=== PATIENT | female | born 1995 | race American Indian/Alaskan Native ===

== ENCOUNTER 2017-02-02 23:21 | Emergency (ER) | payer OTHER ==
[2017-02-03 02:04] LABS: Bacteria,Urine 4+ /HPF (Negative); Bilirubin,Urine NEG (Negative); Blood,Urine NEG (Negative); Ketones,Urine NEG (Negative); Leukocyte Esterase,Urine MOD (Negative); Mucus,Urine 1+ /HPF; Nitrite,Urine NEG (Negative); Protein,Urine <15 mg/dL mg/dL (Negative); Urobilinogen,Urine < 2.0 mg/dL (<2.0)
--- NOTE | 2017-02-03 04:30 | Emergency Department Report ---
ED Female HPI - General Chief complaint: Urogenital-Female Stated complaint: ABD PAIN Time Seen by Provider: 02/03/17 03:32 Source: patient Mode of arrival: Ambulatory Limitations: No Limitations - History of Present Illness Initial comments: This is a 21-year-old female that presents with bilateral lower abdomen pain for 4 months. She stated had a history of kidney stones. Patient was here last year with the same symptoms which she was diagnosed with kidney stones. Patient stated has dysuria but denies polyuria. Denies new sexual partner. Does not have any concerns about STDs. Denies any odor or discharge. Patient denies pelvic pain. Patient stated now that she wants pain medication because she has similar symptoms. Patient denies any nausea, vomiting, diarrhea, chest pain, shortness of breath, fever or chills. Patient does not seem toxic or ill in appearance. No signs of distress noted. Patient denies hematuria. Patient denies back pain. Patient denies point tenderness in the abdomen. Nonradiating. -: Gradual, year(s) (4) Location: LLQ, RLQ Radiation: non-radiating Severity: mild Severity scale (0 -10): 0 Quality: cramping, aching Consistency: constant Improves with: none Worsens with: urination Are you Now?: No (patient denies ) Last Menstrual Period: 01/09/17 EDC: 10/16/17 - Related Data Previous Rx's Medication Instructions Recorded Last Taken Type Acetaminophen/Codeine [Tylenol 1 tab PO Q6H PRN #15 tab 05/13/16 Unknown Rx /Codeine # 3 tab] Amoxicillin/K Clav Tab [Augmentin 1 tab PO Q12HR #20 tab 05/13/16 Unknown Rx 875MG TAB] Ibuprofen [Motrin 800 MG tab] 800 mg PO Q8HR #20 tablet 05/13/16 Unknown Rx Loratadine [Claritin] 10 mg PO DAILY #30 tablet 05/13/16 Unknown Rx Prednisone [predniSONE 10 mg 10 mg PO .TAPER #1 tab.ds.pk 05/13/16 Unknown Rx (6-Day Pack, 21 Tabs)] Phenazopyridine [Pyridium] 200 mg PO TID 2 Days 02/03/17 Unknown Rx Sulfamethoxazole/Trimethoprim 1 each PO BID 5 Days 02/03/17 Unknown Rx [Bactrim DS TAB] Allergies Allergy/AdvReac Type Severity Reaction Status Date / Time No Known Allergies Allergy Verified 03/21/15 23:20 ED Review of Systems ROS: Stated complaint: ABD PAIN Other details as noted in HPI Constitutional: denies: chills, fever Eyes: denies: eye pain, eye discharge, vision change ENT: denies: ear pain, throat pain Respiratory: denies: cough, shortness of breath, wheezing Cardiovascular: denies: chest pain, palpitations Endocrine: no symptoms reported Gastrointestinal: denies: abdominal pain, nausea, diarrhea Genitourinary: denies: urgency, dysuria, discharge Musculoskeletal: denies: back pain, joint swelling, arthralgia Skin: denies: rash, lesions Neurological: denies: headache, weakness, paresthesias Psychiatric: denies: anxiety, depression Hematological/Lymphatic: denies: easy bleeding, easy bruising ED Past Medical Hx - Past Medical History Previous Medical History?: Yes Additional medical history: KIDNEY STONES - Surgical History Past Surgical History?: No - Social History Smoking Status: Never Smoker Substance Use Type: None - Medications Home Medications: Home Medications Medication Instructions Recorded Confirmed Last Taken Type Acetaminophen/Codeine [Tylenol 1 tab PO Q6H PRN #15 tab 05/13/16 Unknown Rx /Codeine # 3 tab] Amoxicillin/K Clav Tab [Augmentin 1 tab PO Q12HR #20 tab 05/13/16 Unknown Rx 875MG TAB] Ibuprofen [Motrin 800 MG tab] 800 mg PO Q8HR #20 tablet 05/13/16 Unknown Rx Loratadine [Claritin] 10 mg PO DAILY #30 tablet 05/13/16 Unknown Rx Prednisone [predniSONE 10 mg 10 mg PO .TAPER #1 tab.ds.pk 05/13/16 Unknown Rx (6-Day Pack, 21 Tabs)] Phenazopyridine [Pyridium] 200 mg PO TID 2 Days 02/03/17 Unknown Rx Sulfamethoxazole/Trimethoprim 1 each PO BID 5 Days 02/03/17 Unknown Rx [Bactrim DS TAB] ED Physical Exam - General Limitations: No Limitations General appearance: alert, in no apparent distress - Head Head exam: Present: atraumatic, normocephalic - Eye Eye exam: Present: normal appearance - ENT ENT exam: Present: mucous membranes moist - Neck Neck exam: Present: normal inspection - Respiratory Respiratory exam: Present: normal lung sounds bilaterally. Absent: respiratory distress - Cardiovascular Cardiovascular Exam: Present: regular rate, normal rhythm. Absent: systolic murmur, diastolic murmur, rubs, gallop - GI/Abdominal GI/Abdominal exam: Present: soft, tenderness (RLQ and LLQ), normal bowel sounds. Absent: distended, guarding, rebound, rigid, diminished bowel sounds, hyperactive bowel sounds, hypoactive bowel sounds, organomegaly, mass, bruit, pulsatile mass, hernia - Expanded GI/Abdominal Exam Expanded GI/Abdominal exam: Absent: psoas sign, obturator sign, heel tap sign, Borges's sign, Rovsing's sign, tenderness at Mcburney's Point, ascites - Extremities Exam Extremities exam: Present: normal inspection, full ROM, normal capillary refill. Absent: tenderness, pedal edema - Back Exam Back exam: Present: normal inspection, full ROM. Absent: tenderness, CVA tenderness (R), CVA tenderness (L) - Neurological Exam Neurological exam: Present: alert, oriented X3, CN II-XII intact, normal gait - Psychiatric Psychiatric exam: Present: normal affect, normal mood - Skin Skin exam: Present: warm, dry, intact, normal color. Absent: rash ED Course Vital Signs 02/03/17 02/03/17 02/03/17 00:12 02:24 05:03 Temperature 98.8 F 98.3 F 98.4 F Pulse Rate 88 92 H 86 Respiratory 18 18 20 Rate Blood Pressure 110/78 115/81 Blood Pressure 119/81 [Left] O2 Sat by Pulse 100 99 98 Oximetry ED Medical Decision Making - Lab Data Result diagrams: 02/03/17 05:05 - Medical Decision Making Ed course: This is a 21-year-old female that presents with bilateral lower abdomen pain for 4 months and dysuria. 1- CT scan with contrast abdomen and pelvis: Normal 2- patient is aware of the CT findings 3- at this time I have treated the patient for a urinary tract infection. I instructed the patient to follow-up with her primary care doctor/urologist and 3 -5 days. 4- at the time of discharge the patient does not seem toxic or ill in appearance. No signs of any distress noted. 5- I instructed patient to take antibiotics as prescribed this full course. 6- patient agrees to discharge plan and treatment. No questions noted at this time. Critical care attestation.: If time is entered above; I have spent that time in minutes in the direct care of this critically ill patient, excluding procedure time. ED Disposition Clinical Impression: Urinary tract infection Qualifiers: Urinary tract infection type: site unspecified Hematuria presence: without hematuria Qualified Code(s): N39.0 - Urinary tract infection, site not specified Disposition: DISCHARGED TO HOME OR SELFCARE Is pt being admited?: No Does the pt Need Aspirin: No Condition: Stable Instructions: Urinary Tract Infection in Women (ED) Additional Instructions: Please follow-up with your primary care doctor/urologist in 3-5 days Take full course of antibiotics as prescribed If symptoms worsen report back to emergency room Prescriptions: Phenazopyridine [Pyridium] 200 mg PO TID 2 Days Sulfamethoxazole/Trimethoprim [Bactrim DS TAB] 1 each PO BID 5 Days Referrals: PRIMARY CARE, [Primary Care Provider] - 3-5 Days Forms: Work/School Release Form(ED)
[2017-02-03] MEDS ORDERED: NACL ONE (04:56)
[2017-02-03 05:04] VITALS: BP 119/81
[2017-02-03 06:01] LABS: Anion Gap 18 mmol/L; BUN/Creatinine Ratio 14.28; Blood Urea Nitrogen 10 mg/dL (7-17); Calcium 9.2 mg/dL (8.4-10.2); Carbon Dioxide 25 mmol/L (22-30); Chloride 99.9 mmol/L (98-107); Glucose 89 mg/dL (65-100); Potassium 4.6 mmol/L (3.6-5.0); Sodium 138 mmol/L (137-145)
--- NOTE | 2017-02-03 06:35 | Cat Scan Report ---
FINAL REPORT PROCEDURE: CT ABDOMEN PELVIS W CON TECHNIQUE: Computerized axial tomography of the abdomen and pelvis was performed after the IV injection of iodinated nonionic contrast. HISTORY: abd pain fredrick pelvic pain COMPARISON: 03/21/2015 FINDINGS: Visualized lower thorax: No significant abnormality. Liver: Normal size and attenuation. Spleen: Normal size and attenuation. Gallbladder and biliary system: Normal. Pancreas: Normal. Adrenals: Normal. Kidneys: Normal. GI tract: There is moderate stool in the colon. There is no obstruction, fecal impaction or bowel wall thickening. The appendix is normal.. Lymph nodes and mesentery: Normal. Vasculature: Normal. Bladder: Normal. Reproductive organs: Uterus and ovaries are unremarkable.. Peritoneum: There is no ascites, free air, abscess or adenopathy.. Musculoskeletal structures: There is spondylolysis on the right at L5-S1. There is no spondylolisthesis or fracture.. Other: None. IMPRESSION: There is no acute intra-abdominal abnormality.
== END 2017-02-03 06:55 | disposition home or self-care (01) ==
LOC: ED 23:21
DX: N39.0 Urinary tract infection, site not specified (principal)
CPT/HCPCS: 36415; 74177; 80048; 81001; 81025; 99284; Q9967

== ENCOUNTER 2018-04-14 16:10 | Emergency (ER) | payer OTHER ==
[2018-04-14] MEDS ORDERED: TYLENOL PO ONE ×2 (21:11→23:59)
[2018-04-14 22:19] LABS: Basophils % (Auto) 0.3 % (0.0-1.8); Eosinophils # (Auto) 0.3 K/mm3 (0.0-0.4); Eosinophils % (Auto) 3.5 % (0.0-4.3); Hematocrit 29.2 % (30.3-42.9); Hemoglobin 9.7 gm/dl (10.1-14.3); Lymphocytes # (Auto) 1.9 K/mm3 (1.2-5.4); Lymphocytes % (Auto) 25.5 % (13.4-35.0); Mean Corpuscular HGB Conc 33 % (30-34); Mean Corpuscular Hemoglobin 30 pg (28-32); Mean Corpuscular Volume 90 fl (79-97); Monocytes # (Auto) 0.6 K/mm3 (0.0-0.8); Monocytes % (Auto) 8.4 % (0.0-7.3); Platelet Count 295 K/mm3 (140-440); Red Blood Count 3.26 M/mm3 (3.65-5.03); Red Cell Distribution Width 14.8 % (13.2-15.2)
--- NOTE | 2018-04-14 22:27 | Ultrasound Report ---
FINAL REPORT PROCEDURE: US OB > = 14 WEEKS FETUS TECHNIQUE: Real-time transabdominal sonography of the uterus, placenta, amniotic fluid, adnexa, and fetus was performed with image documentation. Measurements were obtained to determine age/size. M-mode Doppler was used to document heartbeat. CPT 22525 HISTORY: abd pain 28 weeks COMPARISON: No prior studies are available for comparison. FINDINGS: ADDITIONAL GESTATION: None. GENERAL: IUP: Single living intrauterine . Position: Cephalic Placental position: Anterior with grade 1 maturity, without previa. Amniotic fluid volume: Normal. MATERNAL: Uterus: Within normal limits. Cervical length: 4.2 cm. Internal Os: Closed. FETUS: Heart rate and rhythm: 166 beats per minute, regular MEASUREMENTS: BPD: 7.1 centimeters corresponding to 28 weeks and 4 days HC: 26.2 centimeters corresponding to 28 weeks and 4 days AC: 23.9 centimeters corresponding to 28 weeks and 2 days FL: 5.3 centimeters corresponding to 28 weeks and 1 day Mean Gestational Age (composite criteria): 28 weeks and 3 days Ratio biometry: Normal. Estimated Weight: 1199 grams. Estimated Due Date : 07/04/2018 IMPRESSION: Single intrauterine gestation at 28 weeks and 3 days. Estimated due date: 07/04/2018.
[2018-04-14 22:35] LABS: Alanine Aminotransferase 9 units/L (7-56); Albumin 3.6 g/dL (3.9-5); BUN/Creatinine Ratio 22; Blood Urea Nitrogen 11 mg/dL (7-17); Calcium 9.2 mg/dL (8.4-10.2); Hemolysis Index 0
[2018-04-14 22:44] LABS: Bilirubin,Direct < 0.2 mg/dL (0-0.2)
--- NOTE | 2018-04-14 22:44 | Emergency Department Report ---
ED Abdominal Pain HPI - General Chief Complaint: Medical Clearance Stated Complaint: L RIB PAIN X2 WKS Time Seen by Provider: 04/14/18 20:48 Source: patient Mode of arrival: Ambulatory Limitations: No Limitations - History of Present Illness Initial Comments: 22-year-old female past medical history anemia, kidney stones, 28 weeks presents with complaint of proximally 2 weeks of left-sided upper/rib/ chest wall discomfort. Patient denies any trauma to area. Patient denies dysuria or hematuria increased urinary frequency and vaginal bleeding or foul smelling urine. Patient states she is currently visiting from [place]. Patient arrived 2 weeks ago. States her flight was 8-9 hours. Denies any personal history of DVT or PE. Denies pleurisy but does state that when she presses above her abdomen along her ribs that she does feel some pain and it is slightly worse takes deep breath. Denies any current fever chills nausea or vomiting. Patient is fully lucid awake alert and oriented 3. Pain is currently a 3 out of 10. States it is intermittent. Denies any recent surgery. No radiation of pain. Patient denies any rash underneath the left breast or drainage from breast. MD Complaint: abdominal pain Onset/Timin -: week(s) Location: LUQ Radiation: none Severity scale (0 -10): 3 Quality: aching Consistency: intermittent Improves With: nothing Worsens With: nothing Associated Symptoms: denies other symptoms - Related Data Previous Rx's Medication Instructions Recorded Last Taken Type Acetaminophen/Codeine [Tylenol 1 tab PO Q6H PRN #15 tab 05/13/16 Unknown Rx /Codeine # 3 tab] Amoxicillin/K Clav Tab [Augmentin 1 tab PO Q12HR #20 tab 05/13/16 Unknown Rx 875MG TAB] Ibuprofen [Motrin 800 MG tab] 800 mg PO Q8HR #20 tablet 05/13/16 Unknown Rx Loratadine [Claritin] 10 mg PO DAILY #30 tablet 05/13/16 Unknown Rx Prednisone [predniSONE 10 mg 10 mg PO .TAPER #1 tab.ds.pk 05/13/16 Unknown Rx (6-Day Pack, 21 Tabs)] Phenazopyridine [Pyridium] 200 mg PO TID 2 Days tab 02/03/17 Unknown Rx Sulfamethoxazole/Trimethoprim 1 each PO BID 5 Days tablet 02/03/17 Unknown Rx [Bactrim DS TAB] Acetaminophen 325 mg PO Q8H PRN #1 bottle 04/15/18 Unknown Rx Allergies Allergy/AdvReac Type Severity Reaction Status Date / Time No Known Allergies Allergy Verified 04/14/18 16:22 ED Review of Systems ROS: Stated complaint: L RIB PAIN X2 WKS Other details as noted in HPI Constitutional: denies: chills, fever Eyes: denies: eye pain, eye discharge, vision change ENT: denies: ear pain, throat pain Respiratory: denies: cough, shortness of breath, wheezing Cardiovascular: chest pain (2 weeks left sided belwo left breast). denies: palpitations Endocrine: no symptoms reported Gastrointestinal: as per HPI. denies: abdominal pain, nausea, diarrhea Genitourinary: as per HPI (). denies: urgency, dysuria, discharge Musculoskeletal: denies: back pain, joint swelling, arthralgia Skin: denies: rash, lesions Neurological: denies: headache, weakness, paresthesias Psychiatric: denies: anxiety, depression Hematological/Lymphatic: denies: easy bleeding, easy bruising ED Past Medical Hx - Past Medical History Additional medical history: KIDNEY STONES - Surgical History Past Surgical History?: No - Social History Smoking Status: Never Smoker Substance Use Type: None - Medications Home Medications: Home Medications Medication Instructions Recorded Confirmed Last Taken Type Acetaminophen/Codeine [Tylenol 1 tab PO Q6H PRN #15 tab 05/13/16 Unknown Rx /Codeine # 3 tab] Amoxicillin/K Clav Tab [Augmentin 1 tab PO Q12HR #20 tab 05/13/16 Unknown Rx 875MG TAB] Ibuprofen [Motrin 800 MG tab] 800 mg PO Q8HR #20 tablet 05/13/16 Unknown Rx Loratadine [Claritin] 10 mg PO DAILY #30 tablet 05/13/16 Unknown Rx Prednisone [predniSONE 10 mg 10 mg PO .TAPER #1 tab.ds.pk 05/13/16 Unknown Rx (6-Day Pack, 21 Tabs)] Phenazopyridine [Pyridium] 200 mg PO TID 2 Days tab 02/03/17 Unknown Rx Sulfamethoxazole/Trimethoprim 1 each PO BID 5 Days tablet 02/03/17 Unknown Rx [Bactrim DS TAB] Acetaminophen 325 mg PO Q8H PRN #1 bottle 04/15/18 Unknown Rx ED Physical Exam - General Limitations: No Limitations General appearance: alert, in no apparent distress - Head Head exam: Present: atraumatic, normocephalic - Eye Eye exam: Present: normal appearance, PERRL, EOMI - ENT ENT exam: Present: mucous membranes moist - Neck Neck exam: Present: normal inspection - Respiratory Respiratory exam: Present: normal lung sounds bilaterally, chest wall tenderness (slight reproducible pain below left breast above abdomen). Absent: respiratory distress - Cardiovascular Cardiovascular Exam: Present: regular rate, normal rhythm. Absent: systolic murmur, diastolic murmur, rubs, gallop - GI/Abdominal GI/Abdominal exam: Present: soft (abdomen is gravid), normal bowel sounds - Extremities Exam Extremities exam: Present: normal inspection - Back Exam Back exam: Present: normal inspection - Neurological Exam Neurological exam: Present: alert, oriented X3 - Psychiatric Psychiatric exam: Present: normal affect, normal mood - Skin Skin exam: Present: warm, dry, intact, normal color. Absent: rash ED Course Vital Signs 04/14/18 16:22 Temperature 98.6 F Pulse Rate 100 H Respiratory 18 Rate Blood Pressure 125/68 O2 Sat by Pulse 97 Oximetry ED Medical Decision Making - Lab Data Result diagrams: 04/14/18 22:08 04/14/18 22:08 - Medical Decision Making A/P: Chest wall/upper abdominal pain and female 1-patient is approximately 20 weight weeks with normal IUP as per ultrasound area and reports no current bleeding dysuria hematuria or abdominal cramping 2-patient states she recently developed from [place] and had a long flight which is why check d-dimer in context of her symptoms. D-dimer was slightly positive. I discussed this with Dr. Mukherjee. Due to risk factors of and recent long distant travel in context of clinical symptoms I informed patient of the results and clinical plan to obtain either a CAT scan or nuclear medicine test to rule out PE. I explained to her the risks of not diagnosing a PE and also explained to her the risks versus diagnostic benefits of CT and nuclear medicine test. Patient stated she understood my clinical concern but does not wish to have any further imaging at this time. I informed patient that undiagnosed PE can lead to including of her fetus. She stated she understood risks clearly but would prefer to follow-up with her [facility]. I advised her to return to the ED for any worsening symptoms including pleuritic chest pain fever chills nausea vomiting or inability to tolerate anything by mouth or severe palpitations with shortness of breath and diaphoresis. Patient stated she understood these instructions. This conversation was witnessed by commercial singer Ms. Beaulieu at bedside. Patient signed out AGAINST MEDICAL ADVICE. I informed Dr. Mukherjee of my clinical interaction with this patient. 3- I also informed pt she is slightly anemic, pt states she is takign prental vitamins with iron Critical care attestation.: If time is entered above; I have spent that time in minutes in the direct care of this critically ill patient, excluding procedure time. ED Disposition Clinical Impression: Chest wall pain, Left against medical advice Disposition: TO HOME OR SELFCARE Is pt being admited?: No Does the pt Need Aspirin: No Condition: Stable Instructions: Chest Pain (ED), Against Medical Advice (ED), Iron Rich Diet (ED) , Anemia (ED) Prescriptions: Acetaminophen 325 mg PO Q8H PRN #1 bottle PRN Reason: Pain , Severe (7-10) Referrals: [facility] [Provider Group] - 3-5 Days [facility] [Provider [facility]] - 3-5 Days Forms: AMA Form Time of Disposition: 00:05
[2018-04-14] MEDS ORDERED: TYLENOL ONE ×2 (23:20→23:23)
[2018-04-14 23:59] VITALS: BP 110/61
== END 2018-04-15 00:05 | disposition home or self-care (01) ==
LOC: ED 16:10
DX: O26.893 Other specified pregnancy related conditions, third trimester (principal); R07.89 Other chest pain; R10.12 Left upper quadrant pain; Z3A.28 28 weeks gestation of pregnancy
CPT/HCPCS: 36415; 76805; 80048; 80074; 84702; 85025; 85379; 99284